=== PATIENT | male | born 1995 | race Hispanic/Latino ===

== ENCOUNTER 2019-01-21 09:38 | Emergency (ER) | payer SELFPAY ==
[~2019-01-21] VITALS: Ht 167.6 cm; Wt 70.0 kg
[2019-01-21] MEDS ORDERED: PERCOCET1 TA2 PO (14:13)
[2019-01-21 14:19] VITALS: BP 128/64
== END 2019-01-21 14:30 | disposition home or self-care (01) | DRG 563 ==
LOC: ED 09:38
PROC: 0RSMXZZ Reposition Left Elbow Joint, External Approach (ICD-10-PCS; principal; 2019-01-21)
DX: S53.025A Posterior dislocation of left radial head, initial encounter (principal); V18.0XXA Pedal cycle driver injured in noncollision transport accident in nontraffic accident, initial encounter; Y93.55 Activity, bike riding

== ENCOUNTER 2019-02-12 17:12 | Emergency (ER) | payer SELFPAY ==
[~2019-02-12] VITALS: Ht 167.6 cm; Wt 70.5 kg
[~2019-02-12 17:12] MED LIST: PERCOCET1 TA2 PO
[2019-02-12 17:55] VITALS: BP 142/70
== END 2019-02-12 17:55 | disposition home or self-care (01) | DRG 556 ==
LOC: ED 17:12
DX: M25.522 Pain in left elbow (principal)